=== PATIENT | male | born 1960 | race Hispanic/Latino ===

== ENCOUNTER 2019-11-30 06:39 | Day surgery (SDC) | payer MEDICARE ==
[2019-11-28 12:45] LABS: BASOPHILS % (AUTO) 0.6 % (0.0-5.0); EOSINOPHILS % (AUTO) 2.3 % (0.0-8.0); HEMATOCRIT 54.6 % (42-54); MEAN CORPUSCULAR HEMOGLOBIN 29.1 pg (27.0-33.0); MEAN CORPUSCULAR HGB CONC 33.2 g/dL (32.0-36.0); MEAN CORPUSCULAR VOLUME 87.8 fL (79-99); MONOCYTES % (AUTO) 8.7 % (3.0-13.0); NEUTROPHILS % (AUTO) 67.1 % (40.0-77.0); PLATELET COUNT (AUTO) 217 K/uL (130-400); RED BLOOD CELL COUNT(AUTO) 6.22 MIL/uL (4.50-6.20); WHITE BLOOD COUNT (AUTO) 9.8 K/uL (4.8-10.8)
[2019-11-28 13:00] LABS: CREATININE 1.2 mg/dL (0.5-1.5)
[2019-11-28 13:42] VITALS: BP 142/83
[2019-11-29] MEDS: CLINDAMYCIN 900 MG/D5% WATER 50 ML IV SCH (09:15)
--- NOTE | 2019-11-29 17:30 | NUR ---
H/H H/H 18.1/54.[address] MIMS. NO FURTHER ORDERS GIVEN, MAY PROCEED WITH PLANNED PROCEDURE.
[2019-11-30] VITALS (17 sets, daily range): BP systolic 121–150; BP diastolic 67–84
[~2019-11-30] VITALS: Ht 179.1 cm; Wt 183.2 kg
[~2019-11-30 06:39] MED LIST: ALLO100T PO; BENA20TA10 PO; CEFD300C3 PO; CHOL100018 PO; FLUTICASONE PROP NASAL; INDA2.5T5 PO; MONT4TAB10 PO; PRAV20TA4 PO
[2019-11-30] MEDS ORDERED: LACTATED RINGERS 1000ML 1,000 ML IV ONE (06:53)
--- NOTE | 2019-11-30 07:26 | NUR ---
SX RIGHT KNEE CLIPPED AND WIPED WITH BEATRICE BY KRISTIE
[2019-11-30] MEDS ORDERED: LIDOCAINE PF 2% 5ML ABBOJECT ONE ×2 (08:24→09:27)
[2019-11-30] MEDS ORDERED: SUCCINYLCHOLINE 200MG/10ML SYR ONE (08:25)
[2019-11-30] MEDS ORDERED: PROPOFOL 10 MG/ML 20ML VIAL IV ONE (08:25)
[2019-11-30] MEDS ORDERED: FENTANYL CITRATE PF 50 MCG/1 ML 2ML VIAL ONE (08:25)
[2019-11-30] MEDS ORDERED: MIDAZOLAM HCL 1 MG/ML 2ML VIAL ONE (08:29)
[2019-11-30] MEDS: CLINDAMYCIN 900 MG/D5% WATER 50 ML IV SCH (08:30)
[2019-11-30] MEDS ORDERED: PHENYLEPHRINE HCL 10 MG/ML 1ML VIAL IV ONE (08:48)
[2019-11-30] MEDS ORDERED: SODIUM CHLORIDE 0.9% 10 ML VIAL ONE (08:48)
[2019-11-30] MEDS ORDERED: GLYCOPYRROLATE 1 MG/5 ML SYRINGE ONE (08:53)
[2019-11-30] MEDS ORDERED: EPHEDRINE SULFATE 50 MG/ML AMPULE ONE (08:56)
[2019-11-30] MEDS ORDERED: ROCURONIUM 10MG/1ML SYR 10 MG/ML ML ONE (09:04)
[2019-11-30] MEDS ORDERED: NEOSTIGMINE 5MG/5ML SYR IV ONE ×2 (09:21→09:28)
[2019-11-30] MEDS ORDERED: KETOROLAC TROMETHAMINE 30MG/ML ONE (09:30)
[2019-11-30] MEDS ORDERED: NAPR-1023 PO (09:35)
[2019-11-30] MEDS ORDERED: ACET1TAB12 PO (09:35)
[2019-11-30] MEDS ORDERED: MEPERIDINE-PF 25 MG/ML SYG ONE (09:52)
--- NOTE | 2019-11-30 11:30 | NUR ---
PT LEFT VIA WHEELCHAIR WITH RX SCRIPT GIVEN ALONG WITH F/U APPT AND D/C INSTRUCTIONS. V/S STABLE NO COMPLICATIONS,CRUTCHES GIVEN WITH INSTRUCTIONS.
== END 2019-11-30 11:30 | disposition home or self-care (01) ==
LOC: DAH 06:39
PROVIDERS: ATTEND Orthopaedic Surgery
DX: M23.221 Derangement of posterior horn of medial meniscus due to old tear or injury, right knee (principal); M17.11 Unilateral primary osteoarthritis, right knee; M25.561 Pain in right knee; G89.29 Other chronic pain; M94.261 Chondromalacia, right knee; M25.761 Osteophyte, right knee; I10 Essential (primary) hypertension; E78.5 Hyperlipidemia, unspecified; E66.01 Morbid (severe) obesity due to excess calories; F32.9 Major depressive disorder, single episode, unspecified; G47.33 Obstructive sleep apnea (adult) (pediatric); E88.81 Metabolic syndrome and other insulin resistance; Z96.652 Presence of left artificial knee joint; Z98.890 Other specified postprocedural states; Z79.899 Other long term (current) drug therapy; Z88.0 Allergy status to penicillin; Z88.8 Allergy status to other drugs, medicaments and biological substances; Z91.018 Allergy to other foods; Z82.49 Family history of ischemic heart disease and other diseases of the circulatory system; Z83.3 Family history of diabetes mellitus; Z99.89 Dependence on other enabling machines and devices
CPT/HCPCS: 29881; 36415; 80048; 85025; A4215; A4221; A4222; A4223; A4606; A4649 ×3; A4663; A4930; A5120; A6223; J0330; J1885; J2001 ×2; J2175; J2250; J2370; J2704; J2710 ×2; J3010; J3490 ×3; J7120

== ENCOUNTER → 2024-08-24 | Outpatient (CLI) | payer MEDICARE ==
[~2024-08-24] MED LIST changes: +ACET1TAB12 PO; +BENA-8 PO; -BENA20TA10 PO; +CHOL-34 PO; -CHOL100018 PO; -MONT4TAB10 PO; +MONT4TAB19 PO; +NAPR-1023 PO
--- NOTE | 2024-08-24 21:16 | HMCSR ---
APPROVED REPORT EXAM: Two-dimensional and M-mode echocardiogram with Doppler and color Doppler. INDICATION ICD: Cardiomegaly I51.7 2D Dimensions RVDd4.7 cmLVEF(%)31.8 (>50%)LVED Vol(simp.)170.0 mL IVSd1.2 (0.7-1.1cm)FS(%)15 %LVES Vol(simp.)80.4 mL LVDd5.9 (3.8-5.6cm)LA (2D)5.7 (1.6-4.0cm)LVEF(%, simp.)53 % PWd1.7 (0.7-1.1cm)Ao Root(2D)4.0 (2.0-3.7cm)LA ESV INDEX (4CH)34.10 mL/m2 IVSs1.8 cmLVOT diam2.9 (1.8-2.4cm)LA ESV INDEX (2CH)23.60 mL/m2 LVDs5.0 (2.5-4.0cm)LA ESV INDEX (BP)26.70 mL/m2 PWs1.5 cm M-Mode Dimensions EPSS1.1 cm LA (MM)5.5 (1.6-4.0cm) Ao Root(MM)3.9 (2.0-3.7cm) Aortic Valve AoV VTI0.2 mAo Mean GR4.0 mmHgLVOT VTI0.17 m CAROL ANN (VMAX)4.7 cm2AVA (VTI) 4.7 cm2 Mitral Valve MV E Vmax35.4 cm/sDECEL Mikk557 ms MV A Vmax59.2 cm/sP 1/2 T82 ms E/A ratio0.6MVA (PHT)2.7 cm2 TDI E/E' Medial5.8E/E' Lateral4.2 Medial E' Peak V6.10 cm/sLateral E' Peak V8.40 cm/s Pulmonary Valve PV VTI0.23 mPV Mean GR4 mmHg Tricuspid Valve TR Vmax0.4 m/s TR Peak GR0.5 mmHg Left Ventricle The left ventricle is moderately dilated with an LVIDd of 5.9 cm. Septal bounce consistent with BBB. There is normal LV segmental wall motion. Mild concentric left ventricular hypertrophy. LVEF is 50-55 %. The left ventricular diastolic function is normal. Right Ventricle The right ventricle is mildly dilated, measuring 4.7 cm. The right ventricular systolic function is n ormal. Atria The left atrium size is normal. The right atrium is moderately dilated. Aortic Valve Aortic valve is trileaflet with sclerosis of the right coronary cusp. No aortic regurgitation is pres ent. There is no aortic valvular stenosis. Mitral Valve The mitral valve is normal in structure and function. There is no mitral valve regurgitation noted. T here is no mitral valve stenosis. Tricuspid Valve The tricuspid valve is normal in structure and function. There is no tricuspid valve regurgitation no tim. Pulmonic Valve The pulmonary valve is normal in structure and function. There is no pulmonic valvular regurgitation. Great Vessels The aortic root is normal in size. IVC is dilated and collapses <50% with inspiration, consistent wit h an elevated RA pressure of 15 mmHg. Pericardium No pericardial effusion. Conclusion The left atrium size is normal. The left ventricle is moderately dilated with an LVIDd of 5.9 cm. Mild concentric left ventricular hypertrophy. Septal bounce consistent with BBB. There is normal LV segmental wall motion. LVEF is 50-55%. The left ventricular diastolic function is normal. The right ventricle is mildly dilated, measuring 4.7 cm. The right ventricular systolic function is normal. Aortic valve is trileaflet with sclerosis of the right coronary cusp. There is no aortic valvular stenosis. IVC is dilated and collapses <50% with inspiration, consistent with an elevated RA pressure of 15 mmH g. No pericardial effusion.
== END | disposition home or self-care (01) ==
LOC: RAH 13:08
PROVIDERS: ATTEND Internal Medicine
DX: I35.8 Other nonrheumatic aortic valve disorders (principal); I51.7 Cardiomegaly
CPT/HCPCS: 93306

== ENCOUNTER → 2024-09-13 | Outpatient (CLI) | payer OTHER ==
--- NOTE | 2024-09-13 14:09 | HMCIMG ---
CT HEART SAVER PROMOTIONAL HISTORY: Calcium scoring COMPARISON: None TECHNIQUE: Computed tomography of the heart was performed with ECG gating and suspended respiration. Postprocessing was performed on a computer workstation to obtain diastolic phase images, determine calcium score and provide a quantitative assessment of extent of disease. This CT included only the heart. HeartSaver score is 1292.10. Please see cardiac calcium score report. The available CT chest images show no acute finding. CT was performed with one or more following dose reduction techniques: automated exposure control, adjustment of the mA and kv according to patient's size, or use of a iterative reconstruction technique.
== END | disposition home or self-care (01) ==
LOC: RAH 13:26
PROVIDERS: ATTEND Internal Medicine Cardiovascular Disease
DX: Z13.6 Encounter for screening for cardiovascular disorders (principal)
CPT/HCPCS: 75571

== ENCOUNTER → 2024-10-27 | Outpatient (CLI) | payer MEDICARE ==
[2024-10-27] MEDS: REGADENOSON 0.4 MG/5 ML PF SYG IVP ONE (15:09)
--- NOTE | 2024-10-31 16:37 | HMCSR ---
APPROVED REPORT Height: 5 ft 9in Weight: 333 lbs TEST INDICATIONS Diabetes, Dyspnea The imaging protocol used to acquire images was Rest Tc-99m/stress Tc-99m 1 day Consent: The procedure was explained and understood by the patient. Informerd consent was witnessed Nadir Hollingsworth RN First, low dose rest was performed then high dose stress. RESTING DATA: The resting ekg shows: NSR with RBBB Rest SPECT myocardial perfusion imaging was performed in supine position 82 minutes following the int ravenous injection of 11.2 mCi of Tc-99 Sestamibi. Time of rest injection: 09:05: Date: 10/27/2024 Time of rest imagin:27: Date: 10/27/2024 PHARMACOLOGIC STRESS: Pharmacologic stress test was performed by injecting regadenoson 0.4 mg IV push followed by the intra venous injection of NSR mCi of Tc-99 Sestamibi. Time of stress injection: 10:49: Date: 10/27/2024 Time of stress imagin:31: Date: 10/27/2024 Heart Rate at time of stress injection: 63 bpm. Gated Stress SPECT was performed 102 minutes after stress injection. The images were gated to evaluate regional wall motion and calculate left ventricular ejection fracti on. STRESS DETAILS Reason for Termination: Infusion complete Stress Symptoms: No chest pain or symptoms Max HR Achieved: 83 bpm % of APMHR Achieved: 53 Max Blood Pressure: 153/75 mmHg Stress ECG: NSR with RBBB Arrhythmia: No. ST Change: No. Study quality was fair. Lung uptake was Normal. Artifact: No artifact LEFT VENTRICLE Size: The left ventricular size is normal. Systolic Function:The left ventricular systolic function is borderline. Wall Motion: Hypokinesis of the mid to distal inferolateral and lateral segments. The left ventricular ejection fraction was calculated to be 48%.TID = . LV PERFUSION Large size moderate severity predominently fixed perfusion defect of the inferolateral and inferior w alls with partial reversibility. No transient ischemic dilation of the left ventricle. RV Size/Shape Not visualized. IMPRESSION Abnormal pharmacologic nuclear stress test. Global LV Function: Mildy reduced Stress ECG Summary: Nondiagnostic LV Perfusion Summary: Abnormal LV Viability Summary: Potentially viable myocardium Conclusion The left ventricular systolic function is borderline. LVEF 48% Large size predominently fixed perfusion defect of the inferolateral and inferior renteria with partial reversibility consistent with infarct and mild adilia-infarct ischemia. No transient ischemic dilation of the left ventricle.
== END | disposition home or self-care (01) ==
LOC: SHCH 08:38
PROVIDERS: ATTEND Internal Medicine Cardiovascular Disease
DX: I45.10 Unspecified right bundle-branch block (principal); E11.9 Type 2 diabetes mellitus without complications; R06.09 Other forms of dyspnea
CPT/HCPCS: 78452; 93017; J2785; A9500 ×2

== ENCOUNTER → 2025-05-19 | Outpatient (CLI) | payer MEDICARE ==
[~2025-05-19] MED LIST changes: +IOHEXOL 350 MG/ML 100ML INFUS..BTL IV ONE; +IOHEXOL-350 50ML VIAL IV ONE; -NAPR-1023 PO; +NAPR-1194 PO; -PRAV20TA4 PO; +PRAV20TA59 PO
--- NOTE | 2025-05-21 16:32 | CARDIOLOGY ---
RAD REPORT: [facility] CT ANGIO RADIOLOGY REPORT: CORONARY CT ANGIOGRAPHY DATE: May 21, 2025 QUALITY: Excellent CLINICAL HISTORY AND INDICATION: [ fixed defects on lexiscan, elevated CACs1,292] TECHNIQUE: After obtaining a preliminary special technical operations officer image, contrast imaging performed on an [employer] [id number] scanner. A dedicated, limited window, coronary imaging protocol was used, with single breath-hold, retrospective ECG gating, and automated arrhythmia rejection. 100 cc of low osmolar contrast agent: Omnipaque 350 was delivered via a 18-gauge IV catheter in the right antecubital fossa, using a power injector and followed by 60 cc of normal saline bolus as a chaser. Collimated images were reformatted at 0.5 mm intervals, and sent to an offline independent workstation for interpretation, using 3D anatomic reconstructions: Curved multiplanar reconstructions, maximum intensity projections, and multiplanar imaging. No metoprolol was administered prior to scanning due to low baseline heart rate. 0.8 mg SL nitroglycerin was given. CORONARY ARTERY DESCRIPTIONS: The coronary arteries arise in normal position. Left main coronary artery: Normal caliber vessel that bifurcates into the LAD and LCx. Due to body habitus and heavy calcification in the distal left main, luminal stenosis is not quantitated accurately. Left anterior descending coronary artery: Normal caliber vessel and gives rise to diagonal and septal branches. There is mixed calcified and noncalcified plaque in the ostial/proximal LAD with 70-80% stenosis. There is mixed calcified and noncalcified plaque in the D1 with 50-60% stenosis. There is mixed calcified and noncalcified plaque at the D2 and just distal to D2 takeoff with 70-80% stenosis Left circumflex coronary artery: Normal caliber, nondominant and gives rise to a large OM branch. Due to body habitus, the LCx is not well visualized. Right coronary artery: Large, dominant vessel giving rise to the PL and PDA branches. Due to body habitus, the RCA is not well visualized. Due to body habitus, image quality is affected. CAD-RADs: 4A, severe stenosis. Thoracic Aorta: Normal diameter. Sharyn Dill MD Cardiovascular Disease [facility] SHARYN DILL MD May 21, 2025 16:32
== END | disposition home or self-care (01) ==
LOC: RAH 07:43
PROVIDERS: ATTEND Internal Medicine Cardiovascular Disease
DX: I25.118 Atherosclerotic heart disease of native coronary artery with other forms of angina pectoris (principal)
CPT/HCPCS: 75574; Q9967 ×3